=== PATIENT | female | born 1945 | race Caucasian/White ===

== ENCOUNTER 2018-07-24 08:50 | Observation (INO) | payer MEDICARE, OTHER ==
[2018-07-24] VITALS (14 sets, daily range): BP systolic 115–164; BP diastolic 61–94
[~2018-07-24] VITALS: Ht 152.4 cm; Wt 70.8 kg
[~2018-07-24 08:50] MED LIST: ABILIFY 2 MG2 M1 PO; ABILIFY 2 MG2 MG PO; ADULT LOW DOSE81 MG PO; ALLOPURINOL 10100 M1 PO; ALLOPURINOL 10100 M3 PO; ASPIRIN EC81 M1 PO; BRILINTA90 MG PO; CIPROFLOXACIN500 M1 PO; COLACE100 MG PO; CYMBALTA60 MG PO; DILTIAZEM ER240 M1 PO; GLIPIZIDE ER5 MG PO; GLUCOPHAGE XR500 MG PO; GLUCOPHAGE500 MG PO; GLUCOTROL5 MG PO; GLYCOLAX119 GM PO; IMDUR 60 MG TAB60 M1 PO; IMDUR PO; IRON PO; IRON159 MG PO; LASIX 40 MG TAB40 M1 PO; LASIX 40 MG TAB40 M2 PO; LIPITOR10 MG PO; LISINOPRIL20 MG PO; METOCLOPRAMIDE 55 MG PO; MOBIC15 MG PO; NEURONTIN 300300 M1 PO; NITROGLYCERIN0.4 MG PO; NORTRIPTYLINE H25 M3 PO; PANTOPRAZOLE SO40 MG PO; PLAVIX 75 MG TA75 M1 PO; PLAVIX 75 MG TA75 MG PO; PRINIVIL20 MG PO; PROTONIX40 M2 PO; TIAZAC; TIAZAC240 M1 PO; TOPROL XL25 MG PO; ULTRAM 50MG TAB50 MG PO; VESICARE10 M1 PO; VITAMIN D1000 UNI1 PO; VITAMIN D10000 UNIT PO; VITAMIN D2000 UNIT PO; ZESTRIL20 MG PO
[2018-07-24 09:29] LABS: HEMATOCRIT 30.7 % (37.0-47.0); HEMOGLOBIN 9.7 gm/dL (12.0-15.0); MCH 31.3 pg (26.0-34.0); MCHC 31.7 g/dL (28.0-37.0); MCV 98.9 fL (80.0-100.0); MPV 8.5 fl. (7.2-11.1); RBC 3.1 mil/uL (4.20-5.00); RDW-CV 17.7 % (10.5-14.5)
[2018-07-24] MEDS ORDERED: COLESTID1 GM PO (09:34)
[2018-07-24 09:50] LABS: APTT 26.8 Seconds (25.0-31.3); PROTIME 10.3 Seconds (9.20-11.50)
[2018-07-24 10:32] LABS: ALKALINE PHOSPHATASE 97 U/L (46-116); ANION GAP 6 mmol/L (7-16); BUN 40 mg/dL (7-18); CALCIUM 9.4 mg/dL (8.5-10.1); CHLORIDE 103 mmol/L (98-107); CO2 30 mmol/L (21-32); CREATININE 1.6 mg/dL (0.6-1.3); GLUCOSE 136 mg/dL (70-99); POTASSIUM 3.8 mmol/L (3.5-5.1); SGOT 14 U/L (15-37); SGPT 15 U/L (30-65); SODIUM 139 mmol/L (136-145); TOTAL PROTEIN 7.2 g/dL (6.4-8.2)
[2018-07-24 10:56] LABS: CHOLESTEROL 81 mg/dL (<200); HDL CHOLESTEROL 46 mg/dL (>40); LDL CHOLESTEROL 8 mg/dL (<100); SERUM ASSESSMENT Clear; TC:HDL 1.8 Ratio (Not establshd); TOTAL BILIRUBIN 0.3 mg/dL (<0.1-1.0); TRIGLYCERIDE 136 mg/dL (<150); VLDL 27 mg/dL (<40)
--- NOTE | 2018-07-24 17:26 | EKG ---
[place] [address] ELECTROCARDIOGRAM REPORT Name: HERIBERTO KENNEDY Room: [address]R.#: [id number] Admission: 07/24/18 Attend Phys: Jassi Caputo MD, Discharge: Date of : 43 Report #: [id number] THIS REPORT FOR: //name// [facility] Test Date: 2018-07-24 Test Time: 09:29:16 Pat Name: HERIBERTO KENNEDY Department: Room: [facility] Gender: F Joy Operator: : 1945 Requested By: Jassi Caputo Order Number: [id number] Sandrine MD: Davey Anguiano Measurements Intervals [place] Rate: 97 P: 47 [place]: 143 QRS: 15 QRSD: 86 T: 76 QT: 385 QTc: 489 Interpretive Statements Sinus rhythm Borderline T wave abnormalities Borderline prolonged QT interval Compared to ECG 10/17/2016 08:10:43 T-wave abnormality now present Electronically Signed On 07-24-2018 17:25:53 CDT by Davey Anguiano [email or web address] <ELECTRONICALLY SIGNED> By: Davey Anguiano MD, [facility] 07/24/18 1725 8 8 Davey Anguiano MD, FAC /EPI
--- NOTE | 2018-07-24 17:27 | EKG ---
[place] [address] ELECTROCARDIOGRAM REPORT Name: HERIBERTO KENNEDY Room: [address]R.#: [id number] Admission: 07/24/18 Attend Phys: Jassi Caputo MD, Discharge: Date of : 43 Report #: [id number] THIS REPORT FOR: //name// [facility] Test Date: 2018-07-24 Test Time: 15:57:39 Pat Name: HERIBERTO KENNEDY Department: Room: [facility] Gender: F Service Delivery Analyst: : 1945 Requested By: Jassi Caputo Order Number: [id number] Sandrine MD: Davey Anguiano Measurements Intervals [place] Rate: 94 P: 60 ND: 160 QRS: 15 QRSD: 86 T: 41 QT: 400 QTc: 501 Interpretive Statements Sinus rhythm Abnormal R-wave progression, early transition Prolonged QT interval Compared to ECG 10/17/2016 08:10:43 Prolonged QT interval now present Electronically Signed On 07-24-2018 17:27:11 CDT by Davey Anguiano [email or web address] <ELECTRONICALLY SIGNED> By: Davey Anguiano MD, [facility] 07/24/18 1727 1557 155 Davey Anguiano MD, FAC /EPI
--- NOTE | 2018-07-24 18:56 | NUR ---
PT TO UNIT AT APPROX 1445 FROM ENTRY LEVEL LAB TECHNICIAN. ALERT, ORIENTED AND ALL VSS ON ROOM AIR. LEFT CATH SITE MODERATELY SATURATED- NO HEMATOMA. INSTRUCTED ON POST CATH BEDREST. EDUCATED ON SAFETY AND PLAN OF CARE. PLEASE SEE ASSESSMENT FOR ADDITIONAL INFORMATION. WILL CONTINUE TO MONITOR.
--- NOTE | 2018-07-24 22:00 | NUR ---
INITIAL ASSESSMENT COMPLETE. PT DENIES PAIN AT THIS TIME. DRESSING TO CATH SITE TO LEFT GROIN INTACT WITH NO FURTHER DRAINAGE. PT HAS BEEN UP TO BATHROOM WITH SBA AND CANE. VSS. PT DENIES PAIN, DIZZINESS, N/V/D. SEE ASSESSMENT FOR FURTHER DETAILS. BED ALARM ON, CLWR.
[2018-07-25] VITALS: BP 129/54
[2018-07-25 04:00] VITALS: BP 121/53
[2018-07-25 04:36] LABS: HEMATOCRIT 28.1 % (37.0-47.0); MCH 31.9 pg (26.0-34.0); MCHC 31.9 g/dL (28.0-37.0); MCV 99.9 fL (80.0-100.0); MPV 8.4 fl. (7.2-11.1); RBC 2.81 mil/uL (4.20-5.00); WBC 10.1 thou/uL (4.0-11.0)
[2018-07-25 05:01] LABS: ALBUMIN 2.5 g/dL (3.4-5.0); ALKALINE PHOSPHATASE 90 U/L (46-116); ANION GAP 4 mmol/L (7-16); BUN 34 mg/dL (7-18); CALCIUM 8.9 mg/dL (8.5-10.1); CHLORIDE 107 mmol/L (98-107); CHOLESTEROL 75 mg/dL (<200); CO2 27 mmol/L (21-32); CREATININE 1.4 mg/dL (0.6-1.3); GLUCOSE 168 mg/dL (70-99); HDL CHOLESTEROL 41 mg/dL (>40); LDL CHOLESTEROL 12 mg/dL (<100); POTASSIUM 4.3 mmol/L (3.5-5.1); SGOT 14 U/L (15-37); SGPT 13 U/L (30-65); SODIUM 138 mmol/L (136-145); TC:HDL 1.8 Ratio (Not establshd); TOTAL BILIRUBIN 0.2 mg/dL (<0.1-1.0); TOTAL PROTEIN 6.4 g/dL (6.4-8.2); TRIGLYCERIDE 113 mg/dL (<150); TROPONIN-I LEVEL 0.07 ng/mL (<0.06); VLDL 23 mg/dL (<40)
[2018-07-25 05:02] LABS: SERUM ASSESSMENT CLEAR
--- NOTE | 2018-07-25 06:09 | NUR ---
PT HAS SLEPT WELL T/O THIS SHIFT WITHOUT ANY COMPLICATIONS. VSS. REMAINS SR ON TELEMETRY. CLWR.
[2018-07-25 08:00] VITALS: BP 137/55
[2018-07-25 10:17] VITALS: BP 144/76
--- NOTE | 2018-07-25 10:57 | NUR ---
PT ALERT, ORIENTED AND ALL VSS ON ROOM AIR. TELE TRACKING NSR. PT C/O LEFT HIP (CATH SITE) PAIN. DRESSING UNCHANGED FROM YESTRERDAY, SMALL HEMATOMA NOTED- MD AWARE. PT UP WITH MIN ASSIST TO RESTROOM. ADEQUATE UO AND 1 BM SO FAR THIS SHIFT. EDUCATED ON SAFETY AND PLAN OF CARE. PT TO DC HOME LATER THIS SHIFT. PLEASE SEE ASSESSMENT FOR ADDITIONAL INFORMATION. WILL CONTINUE TO MONITOR
[2018-07-25 11:59] VITALS: BP 159/69
[2018-07-25 12:24] VITALS: BP 144/76
--- NOTE | 2018-07-25 14:22 | NUR ---
PT REMAINS ALERT AND ORIENTED. NO CHANGE FROM PRIOR ASSESSMENT. PT AND SPOUSE EDUCATED ON DISCHARGE INSTRUCTIONS AND VERBALIZE UNDERSTANDING.
--- NOTE | 2018-07-25 17:03 | EKG ---
[place] [address] ELECTROCARDIOGRAM REPORT Name: HERIBERTO KENNEDY Room: [address]#: [id number] Admission: 07/24/18 Attend Phys: Jassi Caputo MD, Discharge: 07/25/18 Date of : 43 Report #: [id number] THIS REPORT FOR: //name// [facility] Test Date: 2018-07-25 Test Time: 08:22:49 Pat Name: HERIBERTO KENNEDY Department: Room: [facility] Gender: F Research And Insights Executive: : 1945 Requested By: Jassi Caputo Order Number: [id number] Sandrine MD: Davey Anguiano Measurements Intervals [place] Rate: P: [place]: QRS: QRSD: T: QT: QTc: Interpretive Statements Normal sinus rhythm Premature ventricular contraction Nonspecific T-wave flattening Compared to ECG 07/24/2018 15:57:39 Sinus rhythm no longer present Prolonged QT interval no longer present Electronically Signed On 07-25-2018 17:02:48 CDT by Davey Anguiano [email or web address] <ELECTRONICALLY SIGNED> By: Davey Anguiano MD, [facility] 07/25/18 1702 1 1 Davey Anguiano MD, [facility] /EPI
--- NOTE | 2018-07-27 11:36 | CARD ---
[address] [address] CARDIAC CATH REPORT Name: HERIBERTO KENNEDY Room: [address] Alma Rosa Palacio#: [id number] Admission: 07/24/18 Attend Phys: Jassi Caputo MD, Discharge: 07/25/18 Date of : 43 Report #: [id number] THIS REPORT FOR: //name// APPROVED REPORT Study performed: 07/24/2018 12:12:53 Patient Details Patient Status: Out-Patient Room #: The patient is a 73 year-old female Event Personnel Jassi Caputo Record Librarian, Kenya Bustamante RN Childrens Club Attendant, Tika Peters, Kylee De Los Santos Scrub Procedures Performed Left Heart Cath w/or w/o Coronaries [id number] [facility] , SVG AngiogramArt Access - L femoral artery* BENITO Place w/wo Plasty Single CIRC [id number] Indication Positive stress test Risk Factors Hypercholesterolemia, Hypertension, Diabetes Previous Procedures/Diagnoses Previous CABGPrevious PCI Admission/Lab Medications/Medications given during procedure Aspirin, Platelet Aff. Inhib., Beta Theresa, Angiomax bolus and infusion Procedure Narrative The patient was brought electively to the Cardiac Catheterization Laboratory and was prepped and draped in a sterile manner. The left femoral was infiltrated with 2% Lidocaine subcutaneous anesthesia. A 6fr Ultimum Sheath sheath was inserted into the left femoral artery. Coronary angiography was performed using coronary diagnostic catheters. The right coronary system was accessed and visualized with a 6fr JR 4 catheter. The left coronary system was accessed and visualized with a 6FR JL 4 catheter. The left ventricle was accessed and visualized with a 6FR PIGTAIL catheter. Left ventricular/Aortic Valve gradient assessed via catheter pullback. Pre-demployment femoral angiogram was performed . Closure device was deployed with a [address] [place] [place] [address] CARDIAC CATH REPORT Name: HERIBERTO KENNEDY Shaista [address]: [address] [id number] Admission: 07/24/18 Attend Phys: Jassi Caputo MD, Discharge: 07/25/18 Date of : 43 Report #: [id number] 6 Fr Angioseal STS 6Fr. The patient tolerated the procedure well and there were no complications associated with the procedure. Intraoperative Conscious Sedation Sedation start time: 12:40 Case end Time: 13:46 Fentanyl 25 mcg Versed 1 mg Fluoro Time: 11.7 minutes Dose: DAP 93640 cGycm2 1178.22 mGy Contrast Type and Amount: Visipaque 130 ml Coronary Angiography The patient's coronary anatomy is right dominant. [place] Artery Percent Stenosis #1 widely patent saphenous vein graft to small marginal branch of the circumflex #2 previously defined KUO graft with suboptimal antegrade flow Diagnostic Cath Left Main 0% narrowing LAD Widely patent proximal LAD stent with retrograde filling of a previously defined KUO graft with suboptimal antegrade flow Circumflex 80% ostial proximal narrowing Right Coronary 30% mid vessel narrowing of this dominant vessel Hemodynamics The aortic pressure is 128/50 mmHg with a mean of mmHg. The left ventricular pressure is 127/-2 mmHg with a mean of mmHg. The left ventricular end diastolic pressure is 8 mmHg. There was no gradient across the aortic valve upon pullback. Pullback from the left ventricle to the aorta revealed no gradient across the aortic valve. PCI Technique Lesion Percutaneous coronary intervention was performed on the proximal circumflex artery segment. The lesion stenosis prior to intervention was 80% with WILIAN 3 flow. A 6FR XB 3.0 100CM Guide Catheter was used to engage the LFA ostium. A IG: BMW 190cm Interventional Guidewire was used [place] [address] CARDIAC CATH REPORT Name: HERIBERTO KENNEDY Shaista Room: [address] Pia#: [id number] Admission: 07/24/18 Attend Phys: Jassi Caputo MD, Discharge: 07/25/18 Date of : 43 Report #: [id number] BALLOON DILATION A Balloon catheter Trek RX 2.5 X 12 was inserted and inflated up to 12.00atm for 20seconds. Additional Inflation: 14.00atm for 13seconds. Additional Inflation: 14.00atm for 10seconds. STENT DEPLOYMENT A drug-eluting stent Xience Alpine RX 2.5X18 was inserted and inflated up to 12.00atm for 20seconds. Additional Inflation: 14.00atm for 15seconds. Final angiography reveals 0 % stenosis with WILIAN 3 flow. Conclusion #1 significant coronary artery disease characterized by the following A widely patent proximal LAD stent with retrograde filling of a KUO graft which had been previously demonstrated to have suboptimal antegrade flow B 80% tubular ostial and proximal circumflex narrowing C dominant right coronary artery 30% mid vessel narrowing #2 graft study characterized by the following A widely patent saphenous vein graft to 2 small marginal branch of the circumflex D previously defined KUO graft with suboptimal antegrade filling #3 normal left sided hemodynamics study #4 successful percutaneous coronary intervention with deployment of drug-eluting stent at the site of 80% tubular ostial proximal circumflex narrowing with 0% residual narrowing following stent deployment and WILIAN-3 flow the distal vessel Recommendations Cardiac Risk Reduction Program Aggressive Medical Therapy Medications Administered Aspirin (any) [place] [address] CARDIAC CATH REPORT Name: HERIBERTO KENNEDY Room: [address]#: [id number] Admission: 07/24/18 Attend Phys: Jassi Caputo MD, Discharge: 07/25/18 Date of : 43 Report #: [id number] Diagnostic Cath Approved by: Jassi Caputo MD Date/Time: 07/27/2018 11:34:44 <ELECTRONICALLY SIGNED> By: Jassi Caputo MD, FACC 07/27/18 1136 1136 1136Jassi Caputo MD, LOCATED WITHIN [facility] /INF
--- NOTE | 2018-07-27 12:22 | H ---
[address] [address] HISTORY AND PHYSICAL Name: HERIBERTO KENNEDY Room: [address] [place] Rosa Palacio#: [id number] Admission: 07/24/18 Attend Phys: Jassi Caputo MD, Discharge: 07/25/18 Date of : 43 Report #: [id number] THIS REPORT FOR: //name// CC: Gabrielle Caputo DATE OF SERVICE: 07/24/2018 HISTORY OF PRESENT ILLNESS: The patient is a very pleasant 73-year-old female with complex coronary artery disease and multiple risk factors including hypertension, hypercholesterolemia and diabetes as well as weight excess. She has a history of prior coronary bypass grafting and prior stenting of the proximal LAD. Recently, she has noted recurrent chest discomfort and nuclear stress test revealed inferobasilar inducible ischemia. This has continued to plague her. As noted above, the risk factors include hypertension, hypercholesterolemia, diabetes and weight excess. She is a nonsmoker. PAST MEDICAL HISTORY: Remarkable for gout, hypercholesterolemia, diabetes, weight excess and mood disorder. MEDICATIONS: Have included allopurinol 300 mg daily, Abilify 2 mg daily, aspirin 81 mg daily, atorvastatin 10 mg daily, vitamin D3 2000 units daily, Colestid 1 gram daily, diltiazem extended release 240 mg daily, Cymbalta 60 mg daily, furosemide 40 mg daily, glipizide 5 mg b.i.d., metoprolol succinate 25 mg b.i.d., nortriptyline 25 mg daily, pantoprazole 40 mg daily, Brilinta 90 mg b.i.d. and tramadol 50 mg every 4-6 hours for pain. SOCIAL HISTORY: She is . She is a nonsmoker. REVIEW OF SYSTEMS: Remarkable for the following: PSYCHIATRIC: Has a history of significant mood disorder. ENDOCRINE: She has type 2 diabetes. RENAL: Has a history of modest renal insufficiency. PHYSICAL EXAMINATION: GENERAL: Demonstrates a moderately overweight, elderly female in no acute distress. VITAL SIGNS: Her blood pressure is 130/70, pulse rate is 84 and respirations are 18 per minute. NECK: Jugular venous pressure is normal. CHEST: Clear. CARDIAC: Reveals normal first and second heart sounds without rubs, murmurs, [place] [address] HISTORY AND PHYSICAL Name: HERIBERTO KENNEDY Room: [address]#: [id number] Admission: 07/24/18 Attend Phys: Jassi Caputo MD, Discharge: 07/25/18 Date of : 43 Report #: [id number] ABDOMEN: Moderately obese. EXTREMITIES: Without edema with intact femoral, pedal and radial pulses. There are no deformity or arthritic changes. EKG reveals a sinus rhythm with diffuse nonspecific ST-T alterations. IMPRESSION: 1. Coronary artery disease. 2. Abnormal nuclear stress test with inducible inferolateral ischemia. 3. Status post coronary artery bypass grafting. 4. Status post prior percutaneous coronary intervention of the left anterior descending. 5. Hypertension. 6. Hyperlipidemia. 7. Type 2 diabetes. 8. Weight excess. 9. Chronic mood disorder. RECOMMENDATIONS: Given the aforementioned clinical scenario, I would recommend cardiac catheterization to redefine coronary and graft anatomy and outline the prospects for subsequent therapeutic modification. <ELECTRONICALLY SIGNED> By: Jassi Caputo MD, FACC 07/27/18 1222 1400 1421Jassi Caputo MD, FACC /nt
--- NOTE | 2018-07-27 12:23 | D ---
[address] [address] DISCHARGE SUMMARY Name: HERIBERTO KENNEDY Shaista Room: [address] Al[place] Rosa Palacio#: [id number] Admission: 07/24/18 Attend Phys: Jassi Caputo MD, Discharge: 07/25/18 Date of : 43 Report #: [id number] THIS REPORT FOR: //name// CC: Gabrielle Caputo DATE OF SERVICE: 07/25/2018 FINAL DISCHARGE DIAGNOSES: 1. Abnormal nuclear stress test with inducible inferobasilar ischemia. 2. Coronary artery disease. 3. Status post coronary artery bypass grafting. 4. Status post prior percutaneous coronary intervention to the left anterior descending and percutaneous coronary intervention to the circumflex on 07/24/2018. 5. Hypertension. 6. Hyperlipidemia. 7. Type 2 diabetes. PROCEDURES: 07/24/2018 - left heart catheterization, selective coronary arteriography, aortocoronary saphenous vein graft study, and percutaneous coronary intervention to the circumflex. The patient is a pleasant 73-year-old female with hypertension, hyperlipoproteinemia, diabetes and known coronary artery disease status post remote coronary artery bypass grafting and 1 year and 9 months status post stenting of the ostial and proximal LAD. She presented with recurrent chest discomfort and nuclear stress test revealed an inducible inferobasilar defect compatible with inducible ischemia. In this context, I performed cardiac catheterization on 07/24/2018, which revealed a widely patent proximal LAD stent with 80% tubular proximal circumflex narrowing. I stented the proximal circumflex with a 2.5 x 18 mm Xience Alpine drug-eluting stent deployed to a peak pressure of 14-15 atmospheres with 0% residual narrowing and WILIAN 3 flow of the distal vessel. The patient did well post-procedurally with good hemostasis at the left femoral site of catheterization. Lab revealed a sodium 138; potassium 4.3; BUN 34, down from 48 preprocedurally; creatinine 1.4, down from 1.6 preprocedurally and glucose 168 mg percent. Hemoglobin 9.7, hematocrit 30.7, white blood cell count 11,000 with 426,000 platelets. There was modest tenderness at the left femoral site without mass effect without bruit and with 2+ left pedal pulses. DISCHARGE MEDICATIONS: The patient [place] [address] DISCHARGE SUMMARY Name: HERIBERTO KENNEDY Shaista Room: [address]#: [id number] Admission: 07/24/18 Attend Phys: Jassi Caputo MD, Discharge: 07/25/18 Date of : 43 Report #: [id number] medications: Allopurinol 300 mg daily, Abilify 2 mg daily, aspirin 81 mg daily, atorvastatin 10 mg daily, vitamin D3 2000 units b.i.d., colestipol 1 gram daily, diltiazem extended release 240 mg daily, Cymbalta 60 mg daily, furosemide 40 mg daily, glipizide 5 mg b.i.d., metoprolol succinate 25 mg b.i.d., nortriptyline 25 mg daily, pantoprazole 40 mg daily, Brilinta 90 mg b.i.d., tramadol 50 mg every 4-6 hours p.r.n. pain. The patient is scheduled to return to see my nurse practitioner in 1 week, and I will plan to see her in 4 weeks and followup status post percutaneous coronary intervention to the circumflex. <ELECTRONICALLY SIGNED> By: Jassi Caputo MD, [facility] 07/27/18 1223 0940 1320Jorobert Caputo MD, FACC /nt
== END 2018-07-25 14:47 | disposition home or self-care (01) ==
LOC: M.CL 08:50 → M.2W 14:24 → M.TBA-CV 14:24 → M.2W 14:43
PROVIDERS: ADMIT Internal Medicine
DX: I25.10 Atherosclerotic heart disease of native coronary artery without angina pectoris (principal); I10 Essential (primary) hypertension; E78.5 Hyperlipidemia, unspecified; E11.9 Type 2 diabetes mellitus without complications; R63.5 Abnormal weight gain; E78.00 Pure hypercholesterolemia, unspecified; F39 Unspecified mood [affective] disorder; R94.39 Abnormal result of other cardiovascular function study; Z95.1 Presence of aortocoronary bypass graft; Z79.899 Other long term (current) drug therapy; Z79.82 Long term (current) use of aspirin

== ENCOUNTER 2018-09-11 09:39 | Emergency (ER) | payer MEDICARE, OTHER ==
[~2018-09-11] VITALS: Ht 152.4 cm; Wt 73.9 kg
[~2018-09-11 09:39] MED LIST changes: +COLESTID1 GM PO
[2018-09-11] MEDS ORDERED: LISINOPRIL20 MG PO (09:51)
[2018-09-11 10:25] LABS: ABSOLUTE EOSINOPHILS 0.2 thou/uL (0.0-0.7); ABSOLUTE LYMPHOCYTES 2.2 thou/uL (0.8-5.3); ABSOLUTE MONOCYTES 0.6 thou/uL (0.0-1.2); ABSOLUTE NEUTROPHILS 7.1 thou/uL (1.6-8.1); BASOPHILS 0.4 %; EOSINOPHILS 2.4 %; HEMATOCRIT 32.4 % (37.0-47.0); HEMOGLOBIN 10.3 gm/dL (12.0-15.0); LYMPHOCYTES 21.2 %; MCH 31.2 pg (26.0-34.0); MCHC 31.8 g/dL (28.0-37.0); MCV 98.3 fL (80.0-100.0); MONOCYTES 5.9 %; MPV 8.5 fl. (7.2-11.1); NUCLEATED RBCS 0 /100WBC; PLATELET COUNT* 378 thou/uL (150-400); POLYS 70.1 %; RDW-CV 18.8 % (10.5-14.5); WBC 10.2 thou/uL (4.0-11.0)
[2018-09-11 10:31] LABS: ANION GAP 10 mmol/L (7-16); BUN 28 mg/dL (7-18); CALCIUM 10.3 mg/dL (8.5-10.1); CHLORIDE 99 mmol/L (98-107); CO2 28 mmol/L (21-32); CREATININE 1.2 mg/dL (0.6-1.3); GLUCOSE 153 mg/dL (70-99); POTASSIUM 4.2 mmol/L (3.5-5.1); SODIUM 137 mmol/L (136-145)
[2018-09-11 10:38] LABS: ALBUMIN 3.1 g/dL (3.4-5.0); ALKALINE PHOSPHATASE 125 U/L (46-116); SGOT 16 U/L (15-37); SGPT 17 U/L (30-65); TOTAL BILIRUBIN 0.3 mg/dL (<0.1-1.0); TOTAL PROTEIN 7.7 g/dL (6.4-8.2); TROPONIN-I LEVEL <0.06 ng/mL (<0.06)
[2018-09-11 12:35] VITALS: BP 156/71
--- NOTE | 2018-09-11 18:07 | EKG ---
[place] [address] ELECTROCARDIOGRAM REPORT Name: HERIBERTO KENNEDY Room: [facility]#: [id number] Admission: 09/11/18 Attend Phys: Discharge: 09/11/18 Date of : 43 Report #: [id number] THIS REPORT FOR: //name// [facility] ED Test Date: 2018-09-11 Test Time: 09:40:49 Pat Name: HERIBERTO KENNEDY Department: Room: Gender: F Lesson Instructor: NATHAN : 1945 Requested By: Javier Mendoza Order Number: [id number] MD: Davey Anguiano Measurements Intervals [place] Rate: 165 P: 175 [place]: 67 QRS: 33 QRSD: 89 T: 233 QT: 204 QTc: 338 Interpretive Statements Supraventricular tachycardia Ventricular premature complex Probable LVH with secondary repol abnrm ST depression, probably rate related Baseline wander in lead(s) V6 Compared to ECG 07/24/2018 15:57:39 Ventricular premature complex(es) now present ST (T wave) deviation now present Sinus rhythm no longer present Prolonged QT interval no longer present Electronically Signed On 09-11-2018 18:07:23 E COMMERCE SPECIALIST by Davey Anguiano [email or web address] <ELECTRONICALLY SIGNED> By: Davey Anguiano MD, FACC 09/11/18 1807 9 Davey Anguiano MD, FACC /EPI
--- NOTE | 2018-09-11 18:07 | EKG ---
[place] [address] ELECTROCARDIOGRAM REPORT Name: BRENTHERIBERTO A [facility] [id number] Admission: 09/11/18 Attend Phys: Discharge: 09/11/18 Date of : 43 Report #: [id number] THIS REPORT FOR: //name// [facility] ED Test Date: 2018-09-11 Test Time: 09:45:45 Pat Name: HERIBERTO KENNEDY Department: Room: Gender: F Tool Adjuster: NATHAN : 1945 Requested By: Javier Mendoza Order Number: [id number] MD: Davey Anguiano Measurements Intervals [place] Rate: 107 P: 82 FL: 148 QRS: 19 QRSD: 97 T: 34 QT: 348 QTc: 465 Interpretive Statements Sinus tachycardia Minimal ST depression, lateral leads Compared to ECG 07/24/2018 15:57:39 ST (T wave) deviation now present Sinus rhythm no longer present Prolonged QT interval no longer present Electronically Signed On 09-11-2018 18:07:39 FARM EQUIPMENT OPERATOR by Davey Anguiano [email or web address] <ELECTRONICALLY SIGNED> By: Davey Anguiano MD, [facility] 09/11/18 1807 0945 0945 Davey Anguiano MD, [facility] /EPI
--- NOTE | 2018-09-11 18:09 | EKG ---
[place] [address] ELECTROCARDIOGRAM REPORT Name: HERIBERTO KENNEDY Room: [facility]#: [id number] Admission: 09/11/18 Attend Phys: Discharge: 09/11/18 Date of : 43 Report #: [id number] THIS REPORT FOR: //name// [facility] ED Test Date: 2018-09-11 Test Time: 11:08:24 Pat Name: HERIBERTO KENNEDY Department: Room: Gender: F Software Development Coordinator: : 1945 Requested By: Javier Mendoza Order Number: [id number] MD: Davey Anguiano Measurements Intervals [place] Rate: 102 P: 82 [place]: 142 QRS: 17 QRSD: 88 T: 21 QT: 358 QTc: 467 Interpretive Statements Sinus tachycardia Compared to ECG 07/24/2018 15:57:39 Sinus rhythm no longer present Prolonged QT interval no longer present Electronically Signed On 09-11-2018 18:09:12 PATTERN KEEPER by Davey Anguiano [email or web address] <ELECTRONICALLY SIGNED> By: Davey Anguiano MD, [facility] 09/11/18 1809 1108 07 Davey Anguiano MD, FACC /EPI
== END 2018-09-11 12:35 | disposition home or self-care (01) ==
LOC: M.ERS 09:39
PROVIDERS: Emergency Medicine Emergency Medical Services
DX: I47.1 Supraventricular tachycardia (principal); I50.9 Heart failure, unspecified; M79.7 Fibromyalgia; F32.9 Major depressive disorder, single episode, unspecified; E11.9 Type 2 diabetes mellitus without complications; E66.9 Obesity, unspecified; Z68.31 Body mass index [BMI] 31.0-31.9, adult; Z95.1 Presence of aortocoronary bypass graft; Z90.49 Acquired absence of other specified parts of digestive tract; Z95.5 Presence of coronary angioplasty implant and graft; Z86.73 Personal history of transient ischemic attack (TIA), and cerebral infarction without residual deficits; Z86.2 Personal history of diseases of the blood and blood-forming organs and certain disorders involving the immune mechanism; Z88.1 Allergy status to other antibiotic agents; Z88.0 Allergy status to penicillin; Z88.2 Allergy status to sulfonamides

== ENCOUNTER → 2018-09-26 | Outpatient (CLI) | payer MEDICARE, OTHER ==
--- NOTE | 2018-09-26 16:57 | CARDNUC ---
[place] [address] CARDIAC NUCLEAR IMAGING REPORT Name: BRENTHERIBERTO A Room: [facility]#: [id number] Admission: 09/26/18 Attend Phys: Cesar Solomon Discharge: Date of : 43 Date of Service: 09/26/18 1657 Report #: [id number] THIS REPORT FOR: //name// APPROVED REPORT Imaging Protocol: Rest Tc-99m/Stress Tc-99m 2 days Study performed: 09/26/2018 15:35:00 Indication: Dyspnea Patient Location: Out-Patient Stress Tech: Sasha Griffin Stress Nurse: Tatum Mckinney RN Ht: 5 ft 0 in Wt: 162 lbs BSA: 1.71 m2 BMI: 31.63 Medical History Medical History: mi, cabg, cad, pci, hyperlipidemia, hypertension, diabetes Medications: asa, atorvastatin, diltiazem, furosemide, metoprolol, ticagrelor Allergies: cephalexin, doxycycline, penicillin, sulfa Cardiac Risk Factors: age, hyperlipidemia, hypertension, diabetes, family hx Previous Cardiac Procedures: cabg, pci Exercise History: Sedentary Resting Data Time of rest injection: Date: 09/11/2018 Pharmacologic Stress Pharmacologic stress test was performed by injecting Regadenoson 0.4 mg IV push over 10-15 seconds immediately followed by the intravenous injection of 36.0 mCi of Tc-99m Sestamibi. Time of stress injection: 15:20 Date: 09/26/2018 Administration Route: IV Administration Site: Right Hand Heart Rate at time of stress injection: 103 bpm. Gated Stress SPECT was performed 40 minutes after stress injection. The images were gated to evaluate regional wall motion and calculate left ventricular ejection fraction. Prone imaging was performed[place] [address] CARDIAC NUCLEAR IMAGING REPORT Name: HERIBERTO KENNEDY Room: [facility]#: [id number] Admission: 09/26/18 Attend Phys: Cesar Solomon Discharge: Date of : 43 Date of Service: 09/26/18 1657 Report #: [id number] Stress Test: Pharmacologic stress testing performed using 0.4 mg of regadenoson per 5 mL given IV over 10 seconds. Reason for pharmacologic stress test: physical limitation. HR Max Heart Rate (APMHR): 146 bpm Resting HR: 90 bpm Target HR (85% APMHR): 124 bpm Max HR Achieved: 103 bpm % of APMHR: 70 Recovery HR: 96 bpm HR response to stress: Normal HR response to stress BP Resting BP: 128/74 mmHg Max BP: 123/72 mmHg Recovery BP: 145/64 mmHg BP response to stress: Normal blood pressure response to stress. ECG Resting ECG: nsr LVH Stress ECG: nsr ST Change: none Recovery ECG: nsr Recovery ST Change: none Clinical Reason for Termination: Completed protocol Stress Symptoms: None Exercise duration: 0 min sec Exercise capacity: 1 METs Nurse Comments pt did not hold beta blockers. pt has very unsteady gait and cannot walk on treadmill Stress ECG Conclusion negative ecg portion Study Quality Study: Fair Artifact: Moderate Breast artifactSoft tissue attenuation artifact Lung Uptake: Normal Study Data At rest, the left ventricular ejection fraction was 60%.. Post stress, the left ventricular ejection was [facility] [address] [place] [address] CARDIAC NUCLEAR IMAGING REPORT Name: HERIBERTO KENNEDY Room: [facility]#: [id number] Admission: 09/26/18 Attend Phys: Cesar Solomon Discharge: Date of : 43 Date of Service: 09/26/18 1657 Report #: [id number] 63%.. Perfusion Review of SPECT images reveals a patchy, inhomongenous uptake of tracer in all segments, but no defined reversible defects.There is mild gut uptake on both supine datasets. Stress prone images though , are normal. Images were reviewed using [employer]. Wall Motion normal all segments Nuclear Conclusion ECG Findings: negative for ischemia Clinical Findings: negative for ischemia Nuclear Findings: negative for ischemia Exercise Capacity: not assessed Left Ventricular Function: normal Risk Study: low Negative perfusion nuclear stress test for ischemia or infarct. <Conclusion> negative ecg portion <ELECTRONICALLY SIGNED> By: Fredi Cobb MD, FACC 09/26/181656 56 56 Fredi Cobb MD, FACC /INF
== END ==
LOC: M.NUC 09-19 15:11
DX: I25.110 Atherosclerotic heart disease of native coronary artery with unstable angina pectoris (principal); E78.5 Hyperlipidemia, unspecified; I10 Essential (primary) hypertension; E11.9 Type 2 diabetes mellitus without complications

== ENCOUNTER → 2019-06-03 | Outpatient (CLI) | payer MEDICARE, OTHER ==
--- NOTE | 2019-06-03 16:10 | CARDNUC ---
[place] [address] CARDIAC NUCLEAR IMAGING REPORT Name: HERIBERTO KENNEDY Room: [facility]#: [id number] Admission: 06/03/19 Attend Phys: Cesar Solomon Discharge: Date of : 43 Date of Service: 06/03/19 1609 Report #: [id number] THIS REPORT FOR: //name// APPROVED REPORT Study performed: 06/03/2019 09:28:52 Exam: Nuclear Stress Test Indication: Fatigue, Lightheadedness, Dizziness, Falls. Patient Location: Out-Patient Stress Tech: Taniya Walton Stress Nurse: Ana Borges R.N. NM Tech:JASMINE Chauhan Ht: 5 ft 0 in Wt: 161 lbs BSA: 1.70 m2 BMI: 31.43 Medical History Medical History: Hx Falls, Dizziness/lightheadedness, HX SVT, CAD s/p CABG, CAD s/p MT, CAD s/p stent, Angina, Cardiomyopathy, CKD, Diabetes, Fatigue, HTN, Hyperlipidemia, Weakness. Medications: ASA 81 Mg, Atorvastatin, Colestipol, Diltiazem, Lasix, Glipizide, Imdur, Lisinopril, Metoprolol, NTG, Brilinta, ACTOS. Allergies: Cephalexin, Doxycycline, Penicillin G, Sulfa ABT. Cardiac Risk Factors: Age, DM, FHX of CAD, HTN, Hyperlipidemia, CKDIII, HX SVT. Previous Cardiac Procedures: CABG, PCI, Myocardial infarction. Pretest Chest Pain Characteristics: No chest pain Exercise History: Sedentary Physical Disabilities: Extreme Dizziness, unstable gait, generalized weakness, 1x assist in transfers. Meds Held (24 hrs): NTG, Metoprolol, Imdur. Stress Test Details Stress Test: Pharmacologic stress testing performed using 0.4 mg of regadenoson per 5 mL given IV over 10 seconds. Reason for pharmacologic stress test: Extreme Dizziness, unsteady gait, weakness, 1x assist transfer.. HR Resting HR: 66 bpm Max Heart Rate (APMHR): 145 bpm Max HR Achieved: 86 bpm Target HR (85% APMHR): 123 bpm % of APMHR: 59 Recovery HR: [address] [place] [address] CARDIAC NUCLEAR IMAGING REPORT Name: HERIBERTO KENNEDY Room: [facility]#: [id number] Admission: 06/03/19 Attend Phys: Cesar Solomon Discharge: Date of : 43 Date of Service: 06/03/19 1609 Report #: [id number] Resting BP: 111/83 mmHg Max BP: 154/75 mmHg ECG Resting ECG: Sinus Rhythm Stress ECG: Sinus Rhythm ST Change: None Arrhythmia: None Recovery ECG: Sinus Rhythm Recovery ST Change: None Recovery Arrhythmia: None Clinical The patient tolerated Lexiscan infusion without significant cardiac symptoms. Nurse Comments 74 year old female presented with HX of CABG, PCI, MT and recent extreme dizziness, unsteady balance and falls. Patient tolerated sitting Lexiscan well. Recovery unremarkable with PO caffeine, effective. Patient was escorted via wheelchair by staff to Nuclear Medicine for images. Patient was stable with no complaints at that time. Stress ECG Conclusion The baseline 12-lead EKG shows sinus rhythm without significant ST or T wave abnormality. His obtained during and post Lexiscan infusion sinus rhythm with no significant ST or changes when compared to baseline. There were no stress-induced arrhythmias. NM EXAM: Myocardial Perfusion REST/STRESS Imaging Protocol: Rest Tc-99m/Stress Tc-99m 1 day Resting Data Rest SPECT myocardial perfusion imaging was performed in supine position 30 minutes following the intravenous injection of 11.4 mCi of Tc-99m Sestamibi. Time of rest injection: 0800 Date: 06/03/2019 The images were gated to evaluate regional wall motion and calculate left ventricular ejection fraction. Administration Route: IV Administration Site: Right [place] [address] CARDIAC NUCLEAR IMAGING REPORT Name: BRENTHERIBERTO Shaista Room: [facility]#: [id number] Admission: 06/03/19 Attend Phys: Cesar Solomon Discharge: Date of : 43 Date of Service: 06/03/19 1609 Report #: [id number] Pharmacologic stress test was performed by injecting Regadenoson 0.4 mg IV push followed by the intravenous injection of 35.7 mCi of Tc-99m Sestamibi. Time of stress injection: 934 Date: 06/03/2019 Administration Route: IV Administration Site: Right AC Gated Stress SPECT was performed 40 minutes after stress injection. The images were gated to evaluate regional wall motion and calculate left ventricular ejection fraction. Prone imaging was performed. Study Quality Study: Fair Artifact: Mild breast and diaphragmatic attenuation artifact noted Study Data At rest, the left ventricular ejection fraction was 64%.. Post stress, the left ventricular ejection was 57%.. TID = 0.99. Perfusion Perfusion images obtained at rest show mild photopenia in the distal anterior wall that is less pronounced on stress images suggesting breast attenuation artifact. Additionally there is a mid inferior wall defect on rest and stress images consistent with diaphragmatic attenuation artifact. No significant reversible defects were identified. Wall Motion Normal left ventricular wall motion. Nuclear Conclusion ECG Findings: negative for ischemia Clinical Findings: negative for ischemia Nuclear Findings: negative for ischemia Exercise Capacity: not assessed Left Ventricular Function: normal Risk Study: low Perfusion images show evidence of diaphragmatic and breast attenuation artifact. There were no significant or reversible defects to suggest ischemia. Global LV systolic function appears normal on gated studies. This is a low risk study. <Conclusion> [place] [address] CARDIAC NUCLEAR IMAGING REPORT Name: HERIBERTO KENNEDY Room: [facility]#: [id number] Admission: 06/03/19 Attend Phys: Cesar Solomon Discharge: Date of : 43 Date of Service: 06/03/19 1609 Report #: [id number] The baseline 12-lead EKG shows sinus rhythm without significant ST or T wave abnormality. His obtained during and post Lexiscan infusion sinus rhythm with no significant ST or changes when compared to baseline. There were no stress-induced arrhythmias. <ELECTRONICALLY SIGNED> By: Davey Anguiano MD, FACC 06/03/19 1609 08 08 Davey Anguiano MD, FACC /INF
== END ==
LOC: M.NUC 12-31 16:27
DX: I25.810 Atherosclerosis of coronary artery bypass graft(s) without angina pectoris (principal); E11.22 Type 2 diabetes mellitus with diabetic chronic kidney disease; I12.9 Hypertensive chronic kidney disease with stage 1 through stage 4 chronic kidney disease, or unspecified chronic kidney disease; N18.9 Chronic kidney disease, unspecified; E78.5 Hyperlipidemia, unspecified; Z79.899 Other long term (current) drug therapy; Z95.1 Presence of aortocoronary bypass graft; Z98.61 Coronary angioplasty status; Z88.8 Allergy status to other drugs, medicaments and biological substances; Z88.2 Allergy status to sulfonamides; Z88.0 Allergy status to penicillin; I25.2 Old myocardial infarction